=== PATIENT | male | born 1950 | race Caucasian/White ===

== ENCOUNTER 2017-06-16 08:20 | Inpatient (IN) | payer MEDICARE, BC ==
[~2017-06-16] VITALS: Ht 180.3 cm; Wt 85.5 kg
[2017-06-16] VITALS (10 sets, daily range): BP systolic 116–162; BP diastolic 57–85; Ht 180.3 cm; Wt 85.5 kg
[2017-06-16 08:57] LABS: BASOPHILS 0.3 % (0-2); EOSINOPHILS 2.8 % (0-7); HEMATOCRIT 38.7 % (42.0-54.0); IMMATURE GRANULOCYTES 0.3 % (0-5); LYMPHOCYTES 19.1 % (15-50); MCHC 33.6 g/dL (31.0-37.0); MCV 83.2 fL (80.0-100.0); MEAN PLATELET VOLUME 10.1 fL (7.4-10.4); MONOCYTES 7.1 % (2-11); NEUTROPHILS 70.4 % (40-80); PLATELET COUNT 145 10x3/uL (130-400); RBC 4.65 10x6/uL (4.20-6.10); RDW 14.1 % (11.5-14.5); WBC 6.1 10x3/uL (4.8-10.8)
[2017-06-16 09:18] LABS: ALBUMIN 4.2 g/dL (3.4-5.0); ANION GAP 12.4 mmol/L (8-16); BILIRUBIN - TOTAL 0.94 mg/dL (0.2-1.3); CALCIUM 9.1 mg/dL (8.5-10.1); CREATININE - SERUM 1.7 mg/dL (0.6-1.3); POTASSIUM - SERUM 4.4 mmol/L (3.5-5.1); PROTEIN - SERUM 7.2 g/dL (6.4-8.2)
[2017-06-16] MEDS ORDERED: VITAMIN B-121000 MCG PO (13:09)
[2017-06-16] MEDS ORDERED: VITAMIN D31000 UNI2 PO (13:09)
[2017-06-16] MEDS ORDERED: BAYER CHEWABLE81 MG PO (13:09)
[2017-06-16] MEDS ORDERED: METAMUCIL PACKE1 PKT PO (13:10)
[2017-06-16] MEDS ORDERED: OMEPRAZOLE20 M1 PO (13:10)
[2017-06-16 14:39] LABS: HEMOGLOBIN 12.6 g/dL (13.5-17.5)
[2017-06-16 18:25] LABS: APTT 26.6 SECONDS (22.8-39.4); INR 1.14 (0.85-1.17); PROTIME 14.2 SECONDS (11.6-15.0)
[2017-06-16 18:31] LABS: ALBUMIN 3.9 g/dL (3.4-5.0); BILIRUBIN - DIRECT 0.21 mg/dL (0.00-0.30); BILIRUBIN - INDIRECT 0.96 mg/dL (0.00-1.00); BILIRUBIN - TOTAL 1.17 mg/dL (0.2-1.3); CALCIUM 8.9 mg/dL (8.5-10.1); CREATININE - SERUM 1.6 mg/dL (0.6-1.3); PROTEIN - SERUM 6.7 g/dL (6.4-8.2)
[2017-06-16 19:54] LABS: HEMATOCRIT 36.9 % (42.0-54.0); HEMOGLOBIN 12.6 g/dL (13.5-17.5)
[2017-06-16 21:47] LABS: APPEARANCE CLEAR (CLEAR); BILIRUBIN NEGATIVE (NEGATIVE); COLOR YELLOW (YELLOW); GLUCOSE NEGATIVE (NEGATIVE); KETONE NEGATIVE (NEGATIVE); NITRITE NEGATIVE (NEGATIVE); PROTEIN NEGATIVE (NEGATIVE); UROBILINOGEN NORMAL (NORMAL)
[2017-06-17] VITALS (13 sets, daily range): BP systolic 106–153; BP diastolic 57–86
[2017-06-17 02:47] LABS: BASOPHILS 0.7 % (0-2); EOSINOPHILS 5.1 % (0-7); HEMATOCRIT 38.7 % (42.0-54.0); HEMOGLOBIN 12.9 g/dL (13.5-17.5); IMMATURE GRANULOCYTES 0.2 % (0-5); LYMPHOCYTES 26.9 % (15-50); MCHC 33.3 g/dL (31.0-37.0); MCV 83.9 fL (80.0-100.0); MEAN PLATELET VOLUME 10.2 fL (7.4-10.4); MONOCYTES 11.8 % (2-11); NEUTROPHILS 55.3 % (40-80); PLATELET COUNT 139 10x3/uL (130-400); RBC 4.61 10x6/uL (4.20-6.10); RDW 14.2 % (11.5-14.5)
[2017-06-17 02:59] LABS: ALBUMIN 3.5 g/dL (3.4-5.0); ANION GAP 13.3 mmol/L (8-16); BILIRUBIN - TOTAL 0.81 mg/dL (0.2-1.3); CALCIUM 8.6 mg/dL (8.5-10.1); CARBON DIOXIDE 26.5 mmol/L (21.0-32.0); CREATININE - SERUM 1.5 mg/dL (0.6-1.3); POTASSIUM - SERUM 3.8 mmol/L (3.5-5.1); PROTEIN - SERUM 6.2 g/dL (6.4-8.2)
[2017-06-17 09:07] LABS: HEMATOCRIT 40.7 % (42.0-54.0); HEMOGLOBIN 13.3 g/dL (13.5-17.5)
[2017-06-18 04:29] LABS: BASOPHILS 0.5 % (0-2); EOSINOPHILS 6.1 % (0-7); HEMATOCRIT 35.3 % (42.0-54.0); HEMOGLOBIN 11.6 g/dL (13.5-17.5); IMMATURE GRANULOCYTES 0.2 % (0-5); LYMPHOCYTES 23.5 % (15-50); MCH 27.7 pg (26.0-34.0); MCHC 32.9 g/dL (31.0-37.0); MCV 84.2 fL (80.0-100.0); MEAN PLATELET VOLUME 10.4 fL (7.4-10.4); MONOCYTES 9.9 % (2-11); NEUTROPHILS 59.8 % (40-80); PLATELET COUNT 126 10x3/uL (130-400); RBC 4.19 10x6/uL (4.20-6.10); WBC 5.8 10x3/uL (4.8-10.8)
[2017-06-18 04:50] LABS: ANION GAP 13.4 mmol/L (8-16); CALCIUM 7.7 mg/dL (8.5-10.1); CARBON DIOXIDE 24.3 mmol/L (21.0-32.0); CREATININE - SERUM 1.5 mg/dL (0.6-1.3); POTASSIUM - SERUM 3.7 mmol/L (3.5-5.1)
[2017-06-18 06:20] VITALS: BP 148/67
[2017-06-18] MEDS ORDERED: FLAGYL500 MG PO (12:35)
[2017-06-18] MEDS ORDERED: FLORANEX / LACT1 TAB PO (12:35)
[2017-06-24 06:15] LABS: OVA + PARASITE EXAM Final report (())
== END 2017-06-18 13:02 | disposition home or self-care (01) | DRG 395 ==
LOC: D.ER 08:20 → D.CVICU 12:11 → D.MS 06-17 17:53
PROVIDERS: Family Medicine; Internal Medicine Gastroenterology
DX: I88.0 Nonspecific mesenteric lymphadenitis (principal); E86.0 Dehydration; I10 Essential (primary) hypertension; I49.49 Other premature depolarization; N28.9 Disorder of kidney and ureter, unspecified; I95.1 Orthostatic hypotension